=== PATIENT | female | born 1995 | race Caucasian/White ===

== ENCOUNTER 2018-02-05 17:49 | Inpatient (IN) | payer OTHER ==
[~2018-02-05] VITALS: Ht 162.6 cm; Wt 73.6 kg
[2018-02-05] VITALS (9 sets, daily range): BP systolic 116–138; BP diastolic 66–79; PULSE 60–78; TEMP 97.6
[~2018-02-05 17:49] MED LIST: PRENATAL MVI
[2018-02-05 19:32] LABS: BASO # 0.1 (0.0-0.2); BASO % 0.5 % (0.0-2.0); EOS # 0.1 (0.0-0.7); EOS % 1.4 % (0-4.0); GRAN # 6.2 (1.4-6.5); GRAN % 66.6 % (42.2-75.2); HEMATOCRIT 40.7 % (37.0-47.0); HEMOGLOBIN 14.1 g/dl (12.5-16.0); LYMPH # 2.3 (1.2-3.4); LYMPH % 24.5 % (20.0-51.0); MEAN CELL VOLUME 90 fl (80.0-100.0); MEAN CORPUSCULAR HEMOGLOBIN 31 pg (27.0-31.0); MEAN CORPUSCULAR HGB CONC 35 g/dl (33.0-37.0); MEAN PLATELET VOLUME 12.9 fl (7.4-10.4); MONO # 0.6 (0.1-0.6); MONO % 6.7 % (1.7-9.3); PLATELET COUNT 120 K/mm3 (130-400); RED BLOOD COUNT 4.51 M/mm3 (4.10-5.30); REDCELL DISTRIBUTION WIDTH-CV 12.7 % (11.5-14.5)
[2018-02-06 00:59] VITALS: BP 126/74; PULSE 75
[2018-02-06 05:00] VITALS: BP 117/55; PULSE 67
[2018-02-06 09:42] VITALS: BP 114/62; PULSE 78; TEMP 98.7
[2018-02-06] MEDS ORDERED: PERCOCET 325 MG1 TA2 PO (10:40)
[2018-02-06] MEDS ORDERED: IBU600 MG PO (10:40)
[2018-02-06 16:00] VITALS: BP 125/66; PULSE 65; TEMP 97.6
== END 2018-02-06 20:20 | disposition home or self-care (01) | DRG 775 ==
LOC: LDRO 17:49 → LDR 18:36 → OB 20:45
PROVIDERS: Obstetrics & Gynecology
PROC: 10E0XZZ Delivery of Products of Conception, External Approach (ICD-10-PCS; principal; 2018-02-05)
DX: O71.82 Other specified trauma to perineum and vulva (principal); Z3A.39 39 weeks gestation of pregnancy; Z37.0 Single live birth; O62.2 Other uterine inertia; O62.3 Precipitate labor
CPT/HCPCS: J2590; J7120

== ENCOUNTER 2022-01-06 04:21 | Inpatient (IN) | payer BC ==
[~2022-01-06] VITALS: Ht 162.6 cm; Wt 85.5 kg
[2022-01-06] VITALS (25 sets, daily range): BP systolic 111–148; BP diastolic 53–82; PULSE 66–96; TEMP 97.5–98.6
[~2022-01-06 04:21] MED LIST changes: +IBU600 MG PO; +PERCOCET 325 MG1 TA2 PO
--- NOTE | 2022-01-06 04:30 | NUR ---
0430 - PATIENT AMBULATORY TO LDR3 ACCOMPANIED BY . PATIENT ORIENTED TO ROOM. PATIENT CHANGES INTO GOWN. 0435 - PATIENT STATES SHE THINKS HER WATER BROKE AROUND 0330. PATIENT DENIES CONTRACTIONS OR BLOODY SHOW. PLAN OF CARE DISCUSSED AND PATIENT AGREEABLE. QUESTIONS ANSWERED. 0440 - PATIENT PLACED ON MONITOR AND VITAL SIGNS OBTAINED. 044 - SVE PERFORMED BY KAITLYNN RICHTER. /2. SROM CONFIRMED WITH AMNIOTRACE. PLAN OF CARE FOR CONTINUED MONITORING DISCUSSED WITH PATIENT AND SPOUSE. 0500 - MD NORI CALLED - SEE PHYSICIAN NOTIFICATION. WATER PROVIDED. PATIENT REPOSITIONED. CARE ONGOING.
[2022-01-06 05:44] LABS: BASO # 0.1 K/mm3 (0.0-0.2); BASO % 0.6 % (0.0-2.0); EOS # 0.1 K/mm3 (0.0-0.7); EOS % 1.5 % (0.0-4.0); GRAN # 5.9 K/mm3 (1.4-6.5); GRAN % 65.3 % (42.2-75.2); HEMOGLOBIN 12.8 g/dl (12.5-16.0); LYMPH # 2.1 K/mm3 (1.2-3.4); MEAN CELL VOLUME 87 fl (80.0-100.0); MEAN CORPUSCULAR HEMOGLOBIN 29 pg (27-31); MEAN CORPUSCULAR HGB CONC 34 g/dl (33.0-37.0); MEAN PLATELET VOLUME 12.1 fl (7.4-10.4); MONO # 0.8 K/mm3 (0.1-0.6); MONO % 8.6 % (1.7-9.3); PLATELET COUNT 151 K/mm3 (130-400); RED BLOOD COUNT 4.39 M/mm3 (4.10-5.30); REDCELL DISTRIBUTION WIDTH-CV 12.7 % (11.5-14.5)
--- NOTE | 2022-01-06 05:50 | NUR ---
0550 - PATIENT UP FOR BRP AND NOW AMBULATING IN HALLWAY. INTERMITTENT EFM TO ALLOW FOR PATIENT AMBULATION. PATIENT EDUCATED ON MONITORING REQUIREMENTS AND PLAN OF CARE DISCUSSED. PATIENT AGREEABLE TO PLAN. CARE ONGOING.
--- NOTE | 2022-01-06 06:30 | NUR ---
0630-Recieved report from KAITLYNN Singer. Patient ambulating in hallway easily without complaint of labor discomfort. Continues to report clear fluid leaking. Updated on plan of care. 0636-Placed back on EFM. VSS, category I FHR tracing. Contracions irregular. 0715-Dr. Yadav updated on patient. See MD notification. Patient up to ambulate in halls.
--- NOTE | 2022-01-06 08:20 | NUR ---
0820-Dr. Yadav to patient room. SVE by /. Discussed plan of care with patient. okay with intermittent monitoring and ambulation per protocol. Patient declines MD reccomendation for pitocin augmentation at this time. 0834-Patient off EFM to BB in room.
--- NOTE | 2022-01-06 11:32 | NUR ---
1132-Off EFM to ambulate.
--- NOTE | 2022-01-06 13:02 | NUR ---
1302-Patient off EFM to ambulate.
--- NOTE | 2022-01-06 15:17 | NUR ---
1517-SVE Updated MD, see physician notification.
--- NOTE | 2022-01-06 17:20 | NUR ---
1720-Patients spouse comes out to unit and reports patient 'feels like its getting closer' requests SVE. . Roles notified. 173-SVE , Roles Requested. 173-Dr. Harding on unit. Set up for delivery. 1735-Patient begins pushing with contraction. Moves vertex well. 1740-Spontaneous delivery of head immediately followed by body. Viable male to mothers abdoment. Cord clamped x2 and cut by father of infant. Care of infant assumed by KAITLYNN Burrows. Apgars 8/9/9. 1744-Spontaneous delivery of intact placenta by . Fundal massage firm. Lochia WNL. EBL 200ml. Pitocin bolus per MD order and protocol. Perineum intact. Jo care provided. Updated on plan of care and safety.
[2022-01-07 03:52] VITALS: BP 125/64; PULSE 65
[2022-01-07 08:30] VITALS: BP 115/59; PULSE 60; TEMP 98.4
[2022-01-07] MEDS ORDERED: MOTRIN 800800 MG/TAB PO (08:43)
--- NOTE | 2022-01-07 09:23 | NUR ---
Initial visit attempt; Parents resting, [employer] Mach[employer] left card of congratulations and God's blessings for the of their son along with information regarding the availability of spiritual care at [facility].
[2022-01-07 12:05] VITALS: BP 110/52; PULSE 72; TEMP 97.8
[2022-01-07 16:14] VITALS: BP 110/53; PULSE 61; TEMP 97.3
--- NOTE | 2022-01-07 19:20 | NUR ---
Discharge paperwork reviewed with patient and spouse. Pt ambulated off unit with belongings at this time.
== END 2022-01-07 19:20 | disposition home or self-care (01) | DRG 807 ==
LOC: LDR 04:21 → LDRO 04:21 → LDR 04:26 → OB 05:12
PROVIDERS: Obstetrics & Gynecology; ADMIT Obstetrics & Gynecology
PROC: 10E0XZZ Delivery of Products of Conception, External Approach (ICD-10-PCS; principal; 2022-01-06)
DX: O99.354 Diseases of the nervous system complicating childbirth (principal); Z37.0 Single live birth; R51.9 Headache, unspecified; O71.82 Other specified trauma to perineum and vulva; Z3A.38 38 weeks gestation of pregnancy
CPT/HCPCS: OP; J2590; J7120